=== PATIENT | male | born 1965 | race Caucasian/White ===

== ENCOUNTER 2016-08-09 13:36 | Emergency (ER) | payer OTHER ==
[2016-08-09 13:43] VITALS: BP 133/81
--- NOTE | 2016-08-09 15:32 | ER Document Report ---
HPI - HPI Patient complains to provider of: head injury Onset: Just prior to arrival Onset/Duration: Sudden Quality of pain: Achy Severity: Mild Pain Level: 2 Context: Patient presents to the emergency department with scalp laceration. 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 Patient is very irate. Patient reports he is waited over 2 hours which is ridiculous. Denies headache declines medication for pain. No c/o vomiting. No active bleeding. Presents with Workmen's Comp. papers. 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 IN LAST 30 DAYS: No - HEENT HEENT: Normocephalic, PERRLA Notes: 12 mm horizontal laceration, well approximated no active bleeding - NECK Neck: Supple - RESPIRATORY Respiratory: Breath Sounds Normal, No Respiratory Distress O2 Sat by Pulse Oximetry: 96 - MUSCULOSKELETAL/EXTREMETIES Musculoskeletal/Extremeties: MAEW, FROM, Non-Tender - NEURO Level of Consciousness: Awake, Alert, Appropriate Motor/Sensory: No Motor Deficit - DERM Integumentary: Warm, Dry Course - Re-evaluation Re-evalutation: 08/09/16 16:03 no baylee needed for laceration, pt instructed on s/s infection, cleaning area and importance of fu with pcp for recheck - Vital Signs Vital signs: Temp Pulse Resp BP Pulse Ox 98.2 F 123 H 16 133/81 H 96 08/09/16 13:41 08/09/16 13:41 08/09/16 13:41 08/09/16 13:41 08/09/16 13:41 Discharge - Discharge Clinical Impression: Elevated blood pressure reading Scalp laceration Qualifiers: Encounter type: initial encounter Qualified Code(s): S01.01XA - Laceration without foreign body of scalp, initial encounter Condition: Stable Disposition: HOME, SELF-CARE Instructions: Soap Cleansing ([facility]), Scalp Laceration ([facility]) Additional Instructions: *You have been treated for a scalp laceration *Take ibuprofen as indicated for pain *Monitor the site for signs of infection such as increasing pain, redness, swelling, warmth *Use gentle shampoo *Follow up with a primary care provider within one week for recheck *Return to ED for signs of infection, worsening condition, changes, needs Monitor your blood pressure. Your blood pressure was elevated today. This may be because you were anxious, in pain or because you need medication. It is important to follow up with your primary care provider for full evaluation. Forms: Elevated Blood Pressure
== END 2016-08-09 15:55 | disposition home or self-care (01) ==
LOC: ER 13:36
DX: S01.01XA Laceration without foreign body of scalp, initial encounter (principal); R03.0 Elevated blood-pressure reading, without diagnosis of hypertension; W22.8XXA Striking against or struck by other objects, initial encounter
CPT/HCPCS: 99282